=== PATIENT | female | born 1995 | race African-American/Black ===

== ENCOUNTER 2017-04-09 06:30 | Inpatient (IN) | payer OTHER ==
[~2017-04-09 06:30] MED LIST: ELECTROLYTE-148 SOLN 500 ML IV ONE
[2017-04-09 07:52] VITALS: BMI 38.3
[2017-04-09] MEDS ORDERED: CITRIC ACID/SODIUM CITRATE 30 ML UNIT-DOSE CUP PO ONE (08:15)
[2017-04-09] MEDS: ELECTROLYTE-148 SOLN 500 ML IV SCH ×2 (08:22→09:08)
[2017-04-09] MEDS ORDERED: TUBERCULIN PPD 5 TU/0.1ML SYRINGE (IN PATIENT USE ONLY) ID ONE (09:00)
[2017-04-09] MEDS ORDERED: IBUPROFEN 800 MG/8 ML IJ IVPB PRN ×2 (11:10→11:36)
[2017-04-09] MEDS ORDERED: METHYLERGONOVINE MALEATE 0.2 MG/1 ML AMP IM PRN (11:10)
[2017-04-09] MEDS ORDERED: oxyCODONE HCL 5 MG TABLET PO PRN ×2 (11:10)
--- NOTE | 2017-04-09 11:14 | HP ---
Past Medical History - Admission History Source: Patient, Medical Record - Past Medical History ...: 3 ...Para: 1 ...Term: 1 ...: 0 ...Spon : 1 ...Induced : 0 ...Multiple Gestation: 0 ...EDC by Theoo: 04/14/17 - Smoking History Smoking history: Never smoked Have you smoked in the past 12 months: No - Alcohol/Substance Use Hx Alcohol Use: No Home Medications - Allergies Allergies/Adverse Reactions: Allergies Allergy/AdvReac Type Severity Reaction Status Date / Time No Known Drug Allergies Allergy Verified 04/05/13 01:15 - Home Medications Home Medications: Ambulatory Orders Acetaminophen [Tylenol .Regular Strength -] 325 mg PO Q4H PRN #2 tablet Ketorolac Tromethamine [Toradol] 10 mg PO Q6H PRN #1 tablet 04/08/13 Vitamins (Sjr) - 1 tab PO DAILY #1 04/08/13 Sennosides/Docusate Sodium [Pericolace -] 2 each PO HS PRN #0 tablet 04/08/13 Simethicone [Mylicon -] 80 mg PO Q4H PRN #1 tab.chew 04/08/13 Physical Exam - Maternity Vital Signs: Vital Signs Temperature 98.5 F 04/09/17 07:44 Pulse Rate 98 H 04/09/17 07:52 Respiratory Rate 20 04/09/17 07:52 Blood Pressure 128/61 04/09/17 07:52 O2 Sat by Pulse Oximetry (%)
--- NOTE | 2017-04-09 11:19 | HP ---
Past Medical History - Admission Chief Complaint: Repeat c section History of Present Illness: 21 y/o with SIUP at 39 weeks gestation here for scheduled repeat delivery. Pt with h/o obesity and gHTN with last (has been on baby ASA throughout ). RH positive. Pt with no complaints today. Declines TOLAC. 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 No: MA Gastrointestinal: Yes: Other (umbilical hernia). No: Constipation, Irritable Bowel Disease Renal/: No: UTI Reproductive: No: Endometriosis, PID ...: 3 ...Para: 1 ...Term: 1 ...: 0 ...Spon : 1 ...Induced : 0 ...Multiple Gestation: 0 ...EDC by Son[facility]: 04/14/17 Heme/Onc: No: Sickle Cell Disease Infectious Disease: No: MRSA, STD's Psych: No: Anxiety, Bipolar, Depression Endocrine: No: Diabetes Mellitus, Hyperthyroidism, Hypothyroidism - Past Surgical History Hx Myomectomy: No Hx Transabdominal Cerclage: No Additional Surgical History: section - Smoking History Smoking history: Never smoked Have you smoked in the past 12 months: No - Alcohol/Substance Use Hx Alcohol Use: No - Social History Usual Living Arrangement: Yes: With Significant Other ADL: Independent History of Recent Travel: No Home Medications - Allergies Allergies/Adverse Reactions: Allergies Allergy/AdvReac Type Severity Reaction Status Date / Time No Known Drug Allergies Allergy Verified 04/05/13 01:15 - Home Medications Home Medications: Ambulatory Orders Acetaminophen [Tylenol .Regular Strength -] 325 mg PO Q4H PRN #2 tablet Ketorolac Tromethamine [Toradol] 10 mg PO Q6H PRN #1 tablet 04/08/13 Vitamins (Sjr) - 1 tab PO DAILY #1 04/08/13 Sennosides/Docusate Sodium [Pericolace -] 2 each PO HS PRN #0 tablet 04/08/13 Simethicone [Mylicon -] 80 mg PO Q4H PRN #1 tab.chew 04/08/13 Review of Systems - Review of Systems Constitutional: reports: No Symptoms Eyes: reports: No Symptoms HENT: reports: No Symptoms Neck: reports: No Symptoms Cardiovascular: reports: No Symptoms Respiratory: reports: No Symptoms Gastrointestinal: reports: No Symptoms Genitourinary: reports: No Symptoms Breasts: reports: No Symptoms Reported Musculoskeletal: reports: No Symptoms Integumentary: reports: No Symptoms Neurological: reports: No Symptoms Endocrine: reports: No Symptoms Hematology/Lymphatic: reports: No Symptoms Psychiatric: reports: No Symptoms Physical Exam - Maternity Vital Signs: Vital Signs Temperature 98.5 F 04/09/17 07:44 Pulse Rate 98 H 04/09/17 07:52 Respiratory Rate 20 04/09/17 07:52 Blood Pressure 128/61 04/09/17 07:52 O2 Sat by Pulse Oximetry (%) Constitutional: Yes: Well Nourished, No Distress, Calm Eyes: Yes: Conjunctiva Clear, EOM Intact HENT: Yes: Atraumatic, Normocephalic Neck: Yes: Supple, Trachea Midline Cardiovascular: Yes: Regular Rate and Rhythm Lungs: Clear to auscultation Breast(s): Yes: WNL - Abdominal Exam/OB Number of Fetuses: Single Presentation: Vertex Contractions: No Category: I Accelerations: Uniform Decelerations: None - Vaginal Exam/OB Amniotic Membrane Status: Intact - Physical Exam Psychiatric: Yes: Alert, Oriented Hemorrhage Risk Assessment - Risk Factors Medium Risk Factors: Yes: Prior , uterine surgery,or multiple laparotomies Risk Score: 1 Risk Level: Medium Risk Problem List - Problems (1) S/P Code(s): Z98.891 - HISTORY OF UTERINE SCAR FROM PREVIOUS SURGERY (2) Status post repeat low transverse section Code(s): Z98.891 - HISTORY OF UTERINE SCAR FROM PREVIOUS SURGERY (3) Obesity (BMI 30-39.9) Code(s): E66.9 - OBESITY, UNSPECIFIED Assessment/Plan 21 y/o with SIUP at 30 weeks, repeat c section - AFVSS - FHTS cat 1 - for repeat c section - anesthesia/nursing aware - consents signed, R/B/A discussed, questions answered
[2017-04-09] MEDS ORDERED: morphine SULFATE/Preservative Free 0.5 MG/ML (1cc Syringe) EP ONE (11:35)
[2017-04-09] MEDS ORDERED: ONDANSETRON 4 MG/2 ML VIAL IVPB PRN (11:35)
--- NOTE | 2017-04-09 12:10 | OP ---
Operative Note - Note: Operative Date: 04/09/17 Pre-Operative Diagnosis: Prior delivery, SIUP at 39 weeks, declined TOLAC Operation: repeat delivery Findings: normal b/l tubes and ovaries Post-Operative Diagnosis: Same as Pre-op Surgeon: Lorraine Daily Community Product Specialist: Rc Montano Anesthesiologist/[employer] ARCHITECT: Bj Kim Anesthesia: Spinal Specimens Removed: placenta, cord blood specimens Estimated Blood Loss (mls): 600 Operative Report Dictated: Yes
[2017-04-09] MEDS: OXYTOCIN 20 UNITS in 0.9% NS 1,000 ML IV SCH ×2 (12:15→16:24)
[2017-04-09] MEDS: CEFAZOLIN 1 GM in DEXTROSE 5%-WATER - 50 ML IVPB SCH (17:17)
[2017-04-09 18:29] LABS: URINE MARIJUANA THC NEGATIVE ng/ml (CUTOFF=50)
--- NOTE | 2017-04-09 19:20 | OP ---
DATE OF OPERATION: 04/09/2017 PREOPERATIVE DIAGNOSIS: Prior delivery. Single intrauterine at 39 weeks. Declines trial of labor after . POSTOPERATIVE DIAGNOSIS: Prior delivery. Single intrauterine at 39 weeks. Declines trial of labor after . PROCEDURE: Repeat low transverse . SURGEON: Lorraine Daily M.D. PRINCIPAL PROGRAMMER: Mac Jurado ANESTHESIA: Spinal by Bj Kim M.D. ESTIMATED BLOOD LOSS: 600 mL. SPECIMENS REMOVED: Included placenta as well as cord blood samples. COMPLICATIONS: None. DISPOSITION: Stable to recovery. COUNTS: Sponge, needle, and instrument count was reported as correct. BRIEF HISTORY AND PROCEDURE: BRIEF HISTORY AND PROCEDURE: Patient is a 21-year-old G3, P1-0-1-1 female at approximately 39 weeks who 2 days, was admitted to [facility] on April 09, 2017, for a scheduled repeat low transverse section. Consents were signed upon admission. The patient and the surgeon were mutually identified, and the patient was taken back to the operating room where she was given spinal anesthesia and placed in a dorsal supine position in the usual fashion. A hard timeout was performed. She was then prepped and draped in the usual sterile fashion. A Garcia catheter was placed under sterile conditions. Next a Pfannenstiel skin incision was created in the skin with a scalpel and carried to the underlying layer of rectus fascia. The fascia was incised on either side of the midline with a Bovie, and the fascial incision was extended in the superior lateral direction with the Bovie. The fascia was tented up and dissected off the underlying layer of rectus muscle with the Bovie. The midline of the rectus muscle was divided sharply. The peritoneum was entered sharply, and carefully dissected to allow for adequate delivery. The bladder blade was then inserted. Next a transverse incision in the lower uterus segment was completed and extended in the superior lateral direction bluntly. The infant was delivered from the right occipital transverse position without difficulty. Bilateral shoulders delivered without difficulty. The remainder of the infant delivered with ease. The cord was clamped twice and cut in between. The infant was taken over to the warmer to be assessed by the neonatology. The placenta was then delivered with the fetus with cord intact. It was manually extracted from the uterus. The uterus was exteriorized from the abdomen, inspected and cleared of all amniotic membrane and debris with a dry lap sponge. The hysterotomy was reapproximated in a double layer closure, first with 1 Vicryl suture in a running, locked fashion. Second layer was 0 Biosyn suture in a running, locked fashion. Excellent hemostasis was achieved. The posterior cul-de-sac was suctioned. The uterus was placed back into the abdomen. Bilateral gutters were inspected and cleared of all debris. Bilateral tubes and ovaries were noted to be normal. Again, hysterotomy was inspected and noted to be hemostatic. The peritoneal layer was then reapproximated using 2-0 chromic in a running fashion. The musculature was reapproximated using 1 interrupted suture of 2-0 chromic suture. Next, the rectus fascia was reapproximated using 1 Vicryl suture in a running locked fashion. The subcutaneous tissue was irrigated and any bleeding was cauterized with the Bovie device, and the subcutaneous tissue was reapproximated using 1 Vicryl suture in a running fashion, and a subcuticular stitch was placed in the skin using 3-0 Vicryl suture. All Steri-Strips were then applied. The patient tolerated the procedure well, to recovery in stable condition after the procedure in the PACU. Sponge and instrument count were reported to be correct. LORRAINE DAILY DO /[id number]
[2017-04-09] MEDS: FERROUS SO4 325 MG TABLET (FP) PO SCH (22:13)
[2017-04-10] MEDS ORDERED: ceFAZolin SODIUM 1 GM VIAL ONE ×2 (02:03→09:02)
[2017-04-10] MEDS ORDERED: DEXTROSE 5%-WATER - 50 ML IVPB ONE ×2 (02:03→09:02)
[2017-04-10] MEDS: CEFAZOLIN 1 GM in DEXTROSE 5%-WATER - 50 ML IVPB SCH ×2 (02:26→09:36)
[2017-04-10] MEDS: OXYTOCIN 20 UNITS in 0.9% NS 1,000 ML IV SCH (04:00)
[2017-04-10] MEDS: SIMETHICONE 80 MG TAB.CHEW (FP) PO PRN ×2 (05:45→20:02)
[2017-04-10] MEDS: ACETAMINOPHEN 325 MG TABLET (FP) PO PRN ×3 (05:45→20:03)
[2017-04-10 08:07] LABS: BASOPHIL 0.7 % (0-2.0); EOSINOPHIL 1.5 % (0-4.5); MCH 29.3 pg (25.7-33.7); MCHC 33.1 g/dl (32.0-36.0); MEAN CELL VOLUME 88.7 fl (80-96); MEAN PLT VOLUME 8.7 fl (7.5-11.1); NEUTROPHILS 71.5 % (42.8-82.8); PLATELET COUNT 206 K/MM3 (134-434); RDW 13.6 % (11.6-15.6); WHITE BLOOD COUNT 9.2 K/mm3 (4.0-10.0)
--- NOTE | 2017-04-10 08:41 | PN ---
Progress Note (short form) - Note Progress Note: Post op day#1.S/P C Section under spinal anesthesia with duramorph uneventful.Patient stable has little pain for which she is on medication.No any anesthesia related problem.Patient DC from the anesthesia care.
[2017-04-10] MEDS: ENOXAPARIN NA (PORCINE) 40 MG/0.4 ML DISP.SYRIN SQ SCH (09:36)
[2017-04-10] MEDS: FERROUS SO4 325 MG TABLET (FP) PO SCH ×2 (09:37→21:29)
[2017-04-10] MEDS: PRENATAL VITAMINS W/ FOLIC ACID TABLET (FP) PO SCH (09:37)
--- NOTE | 2017-04-10 09:51 | PN ---
Post Progress Note - Subjective Subjective: 21 yo Para 2 status post repeat , seen and evaluated. Doing well. Post Day: 1 Type of Delivery: Repeat C/S Vital Signs: Vital Signs Temperature 98.6 F 04/10/17 05:38 Pulse Rate 80 04/10/17 05:38 Respiratory Rate 20 04/10/17 06:00 Blood Pressure 145/94 04/10/17 05:38 O2 Sat by Pulse Oximetry (%) 99 04/09/17 13:30 Breast Exam: Yes: Soft Uterus: Yes: Fundus Firm Incision: Yes: Dressing dry and intact Abdomen/GI: Yes: Abdomen soft, Tolerating PO Lochia: Yes: Rubra Lochia, amount: Small Extremities: Yes: Calves non-tender Perineum: Yes: Intact Activity: Ambulating - Labs Labs: CBC WBC 9.2 K/mm3 (4.0-10.0) D 04/10/17 07:35 RBC 4.15 M/mm3 (3.60-5.2) 04/10/17 07:35 Hgb 12.2 GM/dL (10.7-15.3) 04/10/17 07:35 Hct 36.8 % (32.4-45.2) 04/10/17 07:35 MCV 88.7 fl (80-96) 04/10/17 07:35 MCH 29.3 pg (25.7-33.7) 04/10/17 07:35 MCHC 33.1 g/dl (32.0-36.0) 04/10/17 07:35 RDW 13.6 % (11.6-15.6) 04/10/17 07:35 Plt Count 206 K/MM3 (134-434) 04/10/17 07:35 MPV 8.7 fl (7.5-11.1) 04/10/17 07:35 Neutrophils % 71.5 % (42.8-82.8) D 04/10/17 07:35 Lymphocytes % 19.1 % (8-40) D 04/10/17 07:35 Monocytes % 7.2 % (3.8-10.2) 04/10/17 07:35 Eosinophils % 1.5 % (0-4.5) 04/10/17 07:35 Basophils % 0.7 % (0-2.0) 04/10/17 07:35 Assessment/Plan Status post repeat Stable Ambulation Analgesia as needed Continue routine post op care
[2017-04-10] MEDS ORDERED: BISACODYL 10 MG SUPP.RECT RC PRN (11:10)
[2017-04-10] MEDS: IBUPROFEN 600 MG TABLET (FP) PO PRN (20:02)
[2017-04-11] MEDS: FERROUS SO4 325 MG TABLET (FP) PO SCH ×2 (09:49→21:49)
[2017-04-11] MEDS: ENOXAPARIN NA (PORCINE) 40 MG/0.4 ML DISP.SYRIN SQ SCH (09:49)
[2017-04-11] MEDS: PRENATAL VITAMINS W/ FOLIC ACID TABLET (FP) PO SCH (09:49)
[2017-04-11] MEDS: IBUPROFEN 600 MG TABLET (FP) PO PRN (10:00)
[2017-04-11] MEDS: SIMETHICONE 80 MG TAB.CHEW (FP) PO PRN ×2 (10:01→21:49)
[2017-04-11] MEDS: ACETAMINOPHEN 325 MG TABLET (FP) PO PRN ×2 (10:01→21:50)
[2017-04-12 09:34] LABS: BASOPHIL 0.7 % (0-2.0); EOSINOPHIL 3.3 % (0-4.5); MCH 29.4 pg (25.7-33.7); MCHC 33.3 g/dl (32.0-36.0); MEAN CELL VOLUME 88.3 fl (80-96); MEAN PLT VOLUME 8.8 fl (7.5-11.1); NEUTROPHILS 58.9 % (42.8-82.8); PLATELET COUNT 253 K/MM3 (134-434); RDW 13.4 % (11.6-15.6); WHITE BLOOD COUNT 7.4 K/mm3 (4.0-10.0)
[2017-04-12] MEDS: PRENATAL VITAMINS W/ FOLIC ACID TABLET (FP) PO SCH (10:40)
[2017-04-12] MEDS: FERROUS SO4 325 MG TABLET (FP) PO SCH ×2 (10:40→21:14)
[2017-04-12] MEDS: ENOXAPARIN NA (PORCINE) 40 MG/0.4 ML DISP.SYRIN SQ SCH (10:41)
[2017-04-12] MEDS: IBUPROFEN 600 MG TABLET (FP) PO PRN (10:49)
[2017-04-12] MEDS: SIMETHICONE 80 MG TAB.CHEW (FP) PO PRN (10:50)
[2017-04-12] MEDS: ACETAMINOPHEN 325 MG TABLET (FP) PO PRN (10:50)
--- NOTE | 2017-04-12 12:28 | PN ---
Progress Note (SOAP) - Subjective Chief Complaint: Pt doing well - Current Medications Current Medications: Active Medications Acetaminophen (Tylenol -) 650 mg PO Q4H PRN PRN Reason: FEVER OR PAIN Last Admin: 04/12/17 10:50 Dose: 650 mg Bisacodyl (Dulcolax Suppository -) 10 mg RC PRN PRN PRN Reason: CONSTIPATION Diphenhydramine HCl (Benadryl Injection -) 25 mg IVPUSH Q4H PRN PRN Reason: Pruritis Last Admin: 04/10/17 05:45 Dose: 25 mg Enoxaparin Sodium (Lovenox -) 40 mg SQ DAILY [facility] Last Admin: 04/12/17 10:41 Dose: 40 mg Ferrous Sulfate (Feosol -) 325 mg PO BID [facility] Last Admin: 04/12/17 10:40 Dose: 325 mg Oxytocin/Sodium Chloride (Normal Saline+20 Units Oxytocin -) 1,000 mls @ 125 mls/hr IV ASDIR FRAN Last Admin: 04/10/17 04:00 Dose: 125 mls/hr Ibuprofen (Motrin -) 600 mg PO Q4H PRN PRN Reason: PAIN Last Admin: 04/12/17 10:49 Dose: 600 mg Ibuprofen (Caldolor Injection -) 600 mg IVPB Q8H PRN PRN Reason: FEVER Methylergonovine Maleate (Methergine Injection -) 0.2 mg IM Q4H PRN PRN Reason: Excessive Bleeding (L&D) Multivit/Folic Acid/Iron ( Vitamins (Sjr) -) 1 tab PO DAILY FRAN Last Admin: 04/12/17 10:40 Dose: 1 tab Simethicone (Mylicon -) 80 mg PO Q4H PRN PRN Reason: GAS Last Admin: 04/12/17 10:50 Dose: 80 mg - Objective Vital Signs: Vital Signs Temperature 98.9 F 04/12/17 08:00 Pulse Rate 82 04/12/17 08:00 Respiratory Rate 20 04/12/17 08:00 Blood Pressure 130/80 04/12/17 08:00 O2 Sat by Pulse Oximetry (%) 99 04/09/17 13:30 Constitutional: Yes: Well Nourished, No Distress Cardiovascular: Yes: WNL, Regular Rate and Rhythm Respiratory: Yes: WNL, Regular, CTA Bilaterally Gastrointestinal: Yes: WNL, Normal Bowel Sounds, Soft Musculoskeletal: Yes: WNL Extremities: Yes: WNL Wound/Incision: Yes: Clean/Dry, Well Approximated Labs Lab Results: CBC, BMP 04/12/17 09:15 Problem List - Problems (1) Status post repeat low transverse section Code(s): Z98.891 - HISTORY OF UTERINE SCAR FROM PREVIOUS SURGERY Assessment/Plan POD 3 Plan DC home
--- NOTE | 2017-04-13 09:06 | DS ---
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 Signs: Vital Signs Temperature 98.4 F 04/12/17 22:00 Pulse Rate 81 04/12/17 22:00 Respiratory Rate 20 04/12/17 22:00 Blood Pressure 136/94 04/12/17 22:00 O2 Sat by Pulse Oximetry (%) 99 04/09/17 13:30 Constitutional: Yes: Well Nourished, No Distress, Calm Eyes: Yes: Conjunctiva Clear, EOM Intact HENT: Yes: Atraumatic, Normocephalic Neck: Yes: Supple, Trachea Midline Cardiovascular: Yes: Regular Rate and Rhythm Respiratory: Yes: Regular, CTA Bilaterally Gastrointestinal: Yes: Normal Bowel Sounds, Soft ....Post : Yes: Uterus firm, Uterus non-tender Wound/Incision: Yes: Clean/Dry, Well Approximated Neurological: Yes: Alert, Oriented Psychiatric: Yes: Alert, Oriented Labs: CBC, BMP 04/12/17 09:15 Delivery - Delivery Type of Anesthesia: Spinal Episiotomy/Laceration: None EBL (cc): 600 Delivery, Single - Stages of Labor Date of Delivery: 04/09/17 Time of Delivery: 11:31 Time Placenta Delivered: 11:32 - Condition of Infant 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 Pt underwent uncomplicated procedure and post course. On post op day 4 was discharged home in stable condition. Condition: Good - Instructions Diet, Activity, Other Instructions: Physical activity Resume your normal everyday activity as tolerated no heavy lifting or exercise until seen by your surgeon. You may walk unlimited jaycee of and climb stairs. You may resume driving the car when you feel safe and comfortable behind the wheel. No sexual activity as instructed. Wound care If you have a bandage, leave it on, and keep dry for 48-72 hours. After that time discard the outer bandage. If they are tapes on the skin under the out of bandage leave them in place. They will peel off in the next 7 to 10 days. Do Not Peel them off. You may shower the day after surgery. If there are tapes present on the skin, you may shower over them. Diet There are no dietary restrictions. Eat healthy, high-fiber foods. Drink 6 to 8 glasses of liquid each day. This will assist in keeping your bowels are regular. Pain management You may take Tylenol or acetaminophen or Ibuprofen (for example, Motrin, Advil etc.) from my pain prescription medication is ordered should be taken as prescribed for moderate to severe pain. Call MD for any of the following: Severe pain not relieved by medication Fever of 101 or higher Excessive bleeding or drainage on dressing Inability to urinate Physical activity Resume your normal everyday activity as tolerated no heavy lifting or exercise until seen by your surgeon. You may walk unlimited jaycee of and climb stairs. You may resume driving the car when you feel safe and comfortable behind the wheel. No sexual activity as instructed. Wound care If you have a bandage, leave it on, and keep dry for 48-72 hours. After that time discard the outer bandage. If they are tapes on the skin under the out of bandage leave them in place. They will peel off in the next 7 to 10 days. Do Not Peel them off. You may shower the day after surgery. If there are tapes present on the skin, you may shower over them. Diet There are no dietary restrictions. Eat healthy, high-fiber foods. Drink 6 to 8 glasses of liquid each day. This will assist in keeping your bowels are regular. Pain management You may take Tylenol or acetaminophen or Ibuprofen (for example, Motrin, Advil etc.) from my pain prescription medication is ordered should be taken as prescribed for moderate to severe pain. Call MD for any of the following: Severe pain not relieved by medication Fever of 101 or higher Excessive bleeding or drainage on dressing Inability to urinate Disposition: HOME - Home Medications Comprehensive Discharge Medication List: Ambulatory Orders Acetaminophen [Tylenol .Regular Strength -] 325 mg PO Q4H PRN #2 tablet Ketorolac Tromethamine [Toradol] 10 mg PO Q6H PRN #1 tablet 04/08/13 Vitamins (Sjr) - 1 tab PO DAILY #1 04/08/13 Sennosides/Docusate Sodium [Pericolace -] 2 each PO HS PRN #0 tablet 04/08/13 Simethicone [Mylicon -] 80 mg PO Q4H PRN #1 tab.chew 04/08/13 Ibuprofen [Motrin -] 600 mg PO QID PRN #28 tablet 04/12/17
[2017-04-13 10:15] VITALS: BP 134/81; PULSE 67; TEMP 97.8
[2017-04-13] MEDS: FERROUS SO4 325 MG TABLET (FP) PO SCH (10:48)
[2017-04-13] MEDS: ENOXAPARIN NA (PORCINE) 40 MG/0.4 ML DISP.SYRIN SQ SCH (10:48)
[2017-04-13] MEDS: PRENATAL VITAMINS W/ FOLIC ACID TABLET (FP) PO SCH (10:48)
[2017-04-13] MEDS: OXYTOCIN 20 UNITS in 0.9% NS 1,000 ML IV SCH (13:03)
--- NOTE | 2017-04-18 16:48 | PATH ---
Surgical Pathology Report Patient Name: NIK KEENE Med. Rec. 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 Specimen(s) Received PLACENTA Clinical History 04/13-failure to dilate Induced x1, gestational hypertension Final Diagnosis PLACENTA, SECTION: FOCALLY DISRUPTED THIRD TRIMESTER PLACENTA (418 g). TRIVASCULAR UMBILICAL CORD AND UNREMARKABLE PLACENTAL MEMBRANES. Electronically Signed Kiah Delgadillo M.D. Gross Description The specimen is received fresh labeled placenta and is a 418 gram, 15.5 x 15.0 x 2.8 cm. placenta with attached membranes and umbilical cord. The attached membranes are tovar, translucent with focal opacities and insert marginally. The umbilical cord measures 28 cm. in length and averages 1.8 cm. in diameter. The cord inserts eccentrically, 5 cm. to the nearest margin. No true knots or strictures are identified. Cut surface of the umbilical cord reveals 3 vessels. The surface is huizar-blue with minimal fibrin deposition and appropriate caliber vessels. The maternal surface is red-brown with focal defects. Sectioning reveals red-brown, spongy parenchyma. No lesions are identified. Sr. Payroll Processor sections are submitted in three cassettes as follows: 1- membrane rolls and umbilical cord; 2-3- full thickness sections of placenta. 04/11/2017 [facility]
== END 2017-04-13 13:00 | disposition home or self-care (01) | DRG 540 ==
LOC: JLDR 06:30 → J3W 13:28
PROVIDERS: ADMIT Obstetrics & Gynecology; ATTEND Obstetrics & Gynecology
PROC: 10D00Z1 Extraction of Products of Conception, Low, Open Approach (ICD-10-PCS; principal; 2017-04-09)
DX: O34.211 Maternal care for low transverse scar from previous cesarean delivery (principal); O10.02 Pre-existing essential hypertension complicating childbirth; Z3A.39 39 weeks gestation of pregnancy; Z37.0 Single live birth
CPT/HCPCS: 36415; 80307; 85025; 88307-TC

== ENCOUNTER 2018-11-09 19:09 | Emergency (ER) | payer OTHER ==
[2018-11-09 19:15] VITALS: BP 155/87; PULSE 93; TEMP 98; BMI 36.8
--- NOTE | 2018-11-09 20:09 | PDOC ---
History of Present Illness - General Chief Complaint: Hemorrhoids Stated Complaint: HEMORRHOIDS Time Seen by Provider: 11/09/18 19:44 History Source: Patient Exam Limitations: No Limitations Past History - Past Medical History Allergies/Adverse Reactions: Allergies Allergy/AdvReac Type Severity Reaction Status Date / Time No Known Drug Allergies Allergy Verified 11/09/18 19:14 Home Medications: Ambulatory Orders Hydrocortisone Acetate [Anusol Hc Suppository -] 25 mg RC DAILY #14 supp.rect Lidocaine 2% Uro-Jet [Xylocaine 2% Uro-Jet] 10 ml GT DAILY PRN #4 cartridge 05/20 Anemia: No Asthma: No Cancer: No Cardiac Disorders: No CVA: No COPD: No CHF: No Dementia: No Diabetes: No GI Disorders: No Disorders: No HTN: Yes (GESTATIONAL) Hypercholesterolemia: No Liver Disease: No Seizures: No Thyroid Disease: No - Immunization History Immunization Up to Date: No - Suicide/Smoking/Psychosocial Hx Smoking History: Never smoked Have you smoked in the past 12 months: No Information on smoking cessation initiated: No Hx Alcohol Use: No Drug/Substance Use Hx: No Hx Substance Use Treatment: No *Physical Exam - Vital Signs Last Vital Signs Temp Pulse Resp BP Pulse Ox 98.0 F 93 H 16 155/87 100 11/09/18 19:13 11/09/18 19:13 11/09/18 19:13 11/09/18 19:13 11/09/18 19:13 - Physical Exam General Appearance: No: Apparent Distress Gastrointestinal/Abdominal: positive: Normal Bowel Sounds, Soft. negative: Tender, Distended, Guarding, Rebound Rectal Exam: positive: hemorrhoids, other (+thrombosed hemorrhoid, no active bleeding) Integumentary: positive: Normal Color Neurologic: positive: Alert, Normal Mood/Affect Medical Decision Making - Medical Decision Making 23 y/o F with no sig pmh presents with hemorrhoids x 1 year, worsening the past 4-5 days. Never sought tx for hemorrhoids prior as they never bothered her prior. The past few days, patient has tried Preparation-H, Colace, sitz bath without improvement of pain. Denies constipation/hard stools, fever, abd pain, rectal bleeding. Thrombosed external hemorrhoid Wanted to remove the clot, but patient refused to allow removal of clot at this time Wanted to have her by her side, but states he is taking too long to get here Explained to patient it would need to be removed to alleviate the pain, but patient states she is not ready right now Will refer to surgery 11/09/18 20:06 *DC/Admit/Observation/Transfer Diagnosis at time of Disposition: Thrombosed hemorrhoids - Discharge Dispostion Disposition: HOME Condition at time of disposition: Stable Decision to Admit order: No - Prescriptions Prescriptions: Hydrocortisone Acetate [Anusol Hc Suppository -] 25 mg RC DAILY #14 supp.rect Lidocaine 2% Uro-Jet [Xylocaine 2% Uro-Jet] 10 ml GT DAILY PRN #4 cartridge PRN Reason: Pain - Referrals Referrals: Heraclio Ruano MD [Staff Physician] - 2 Days - Patient Instructions Printed Discharge Instructions: DI for Hemorrhoids Additional Instructions: Thank you for choosing [facility]. It was a pleasure taking care of you. You were seen here for hemorrhoid with clot, which was not yet removed Please realize this clot needs to be removed for you to feel better Use the Anusol HC as directed Apply lidocaine ointment as needed for pain Continue Sitz bath 2-3 times a day You were referred to surgery clinic Return to the Emergency Department if your symptoms worsen or persist, you have fever, heavy bleeding, pustular drainage or other concerning symptoms. - Post Discharge Activity
[2018-11-09] MEDS ORDERED: LIDOCAINE HCL 5% TOP OINTMENT 50 GM TUBE TP ONE (20:16)
[2018-11-09] MEDS ORDERED: LIDOCAINE HCL 2% JELLY 10 ML CARTRIDGE ONE (20:18)
[2018-11-09] MEDS ORDERED: LIDOCAINE HCL 2% JELLY 10 ML CARTRIDGE PR ONE (20:21)
== END 2018-11-09 20:58 | disposition home or self-care (01) ==
LOC: JERFT 19:09
DX: K64.5 Perianal venous thrombosis (principal)
CPT/HCPCS: 99281-25

== ENCOUNTER 2019-05-18 23:13 | Emergency (ER) | payer OTHER ==
[2019-05-18 23:35] VITALS: BP 139/75; PULSE 101; TEMP 99.8; BMI 36.3
[2019-05-19] MEDS ORDERED: METOCLOPRAMIDE HCL INJECTION 10 MG/2 ML VIAL IVPUSH ONE (00:08)
[2019-05-19] MEDS ORDERED: SODIUM CHLORIDE 1,000 ML IV STA (00:08)
--- NOTE | 2019-05-19 00:16 | PDOC ---
History of Present Illness - General Chief Complaint: Headache Stated Complaint: HEADACHES/FEVER Time Seen by Provider: 05/19/19 00:06 History Source: Patient Exam Limitations: No Limitations - History of Present Illness Initial Comments: 05/19/19 00:11 HISTORY OF PRESENT ILLNESS: 23-year-old woman denies medical history presents to the emergency department for evaluation of fevers, sore throat and headache for 2 days. Patient reports her pain 8/10 describes as a throbbing/pounding sensation throughout her entire head worse on the left side. Patient was seen and evaluated at [facility] yesterday was found to have a positive strep test and was treated with Bicillin. Patient reports continued fevers headache and sore throat since that time. Patient was given fluids and Tylenol which gave her relief of her headache at that time. Patient has been taken Tylenol as directed with minimal relief of symptoms since then. She denies any blurry vision, dizziness, ear pain, hearing difficulties, chest pain, shortness of breath, abdominal pain, nausea or vomiting. No recent travel or sick contacts. PAST MEDICAL HISTORY: Denies past medical history SURGICAL HISTORY: Denies ALLERGIES: No known drug allergies REVIEW OF SYSTEMS General/Constitutional: See HPI HEENT: See HPI Cardiovascular: Denies chest pain or shortness of breath. Respiratory: Denies cough, wheezing, or hemoptysis. Gastrointestinal: Denies nausea, vomiting, diarrhea or constipation. Denies rectal bleeding. Genitourinary: Denies dysuria, frequency, or change in urination. Musculoskeletal: Denies joint or muscle swelling or pain. Denies neck or back pain. Skin and breasts: Denies rash or easy bruising. Neurologic: See HPI Psychiatric: Denies depression or anxiety. Endocrine: Denies increased thirst. Denies abnormal weight change. Hematologic/Lymphatic: Denies anemia, easy bleeding, or history of blood clots. Allergic/Immunologic: Denies hives or skin allergy. Denies latex allergy. PHYSICAL EXAM General Appearance: Well-appearing, appropriately dressed. No apparent distress , no intoxication. HEENT: EOMI, PERRLA, normal ENT inspection, normal voice, TMs normal. Oropharynx with no conjunctival pallor. No photophobia, scleral icterus. 3+ tonsils with tonsillar erythema and exudate present. Neck: Supple. Trachea midline. No tenderness, rigidity, carotid bruit, stridor , or thyromegaly. No meningismus present. Anterior cervical lymphadenopathy present. Respiratory/Chest: Lungs CTAB. No shortness of breath, chest tenderness, respiratory distress, accessory muscle use. No crackles, rales, rhonchi, stridor , wheezing, dullness Cardiovascular: RRR. S1, S2. No JVD, murmur, bradycardia, tachycardia. Vascular Pulses: Dorsalis-Pedis (R): 2+, Dorsalis-Pedis (L): 2+ Gastrointestinal/Abdominal: Normal bowel sounds. Abdomen soft, non-distended. No tenderness or rebound tenderness. No organomegaly, pulsatile mass, guarding, hernia, hepatomegaly, splenomegaly. Lymphatic: No adenopathy, tenderness. Musculoskeletal/Extremities: Normal inspection. FROM of all extremities, normal capillary refill. Pelvis Stable. No CVA tenderness. No tenderness to extremities, pedal edema, swelling, erythema or deformity. Integumentary: Appropriate color, dry, warm. No cyanosis, erythema, jaundice or rash Neurologic: lacing string cutter II-XII intact. Fully oriented, alert. Appropriate mood/affect. Motor strength 5/5. No appreciable EOM palsy, facial droop or sensory deficit. Gait steady. Negative Kernig and Brudzinski signs. 05/19/19 00:17 05/19/19 01:48 Past History - Past Medical History Allergies/Adverse Reactions: Allergies Allergy/AdvReac Type Severity Reaction Status Date / Time No Known Drug Allergies Allergy Verified 05/18/19 23:35 Home Medications: Ambulatory Orders Hydrocortisone Acetate [Anusol Hc Suppository -] 25 mg RC DAILY #14 supp.rect Lidocaine 2% Uro-Jet [Xylocaine 2% Uro-Jet] 10 ml GT DAILY PRN #4 cartridge 05/20 Anemia: No Asthma: No Cancer: No Cardiac Disorders: No CVA: No COPD: No CHF: No Dementia: No Diabetes: No GI Disorders: No Disorders: No HTN: Yes (GESTATIONAL) Hypercholesterolemia: No Liver Disease: No Seizures: No Thyroid Disease: No - Immunization History Immunization Up to Date: No - Psycho Social/Smoking Cessation Hx Smoking History: Never smoked Have you smoked in the past 12 months: No Hx Alcohol Use: No Drug/Substance Use Hx: No Hx Substance Use Treatment: No *Physical Exam - Vital Signs Last Vital Signs Temp Pulse Resp BP Pulse Ox 99.8 F H 101 H 20 139/75 98 05/18/19 23:13 05/18/19 23:13 05/18/19 23:13 05/18/19 23:13 05/18/19 23:13 Medical Decision Making - Medical Decision Making 05/19/19 00:16 A/P: 23-year-old woman with 2 days of fevers, throat pain and headache Likely streptococcal pharyngitis given previous diagnosis and treatment. Reglan 10 mg IV now Benadryl 12.5 mg IV now Normal saline 1 L IV bolus Urinalysis Urine If urine is negative I will add Toradol 30 mg IV Reassess 05/19/19 01:49 Patient reports complete relief of pain after receiving migraine cocktail. Patient is requesting discharge at this time. As patient had a normal neurologic exam is currently pain-free we will discharge with outs any imaging studies performed. Patient's rapid strep testing was negative. Patient to be discharged home with neurologic follow-up. I will provide name for Dr. Dixon for continued evaluation of her headaches. Discharge - Discharge Information Problems reviewed: Yes Clinical Impression/Diagnosis: Headache Qualifiers: Headache type: unspecified Headache chronicity pattern: acute headache Intractability: not intractable Qualified Code(s): R51 - Headache Condition: Fair Disposition: HOME - Admission No - Follow up/Referral Referrals: Akira Kerr [Primary Care Provider] - El Dixon MD [Staff Physician] - - Patient Discharge Instructions Additional Instructions: Take Tylenol or Motrin as needed for headaches. Keep a diary of all food to eat and activities performed prior to headaches starting. Make an appointment with her primary doctor for reevaluation within the next week. Return to emergency department for worsening headache, blurry vision, dizziness , nausea, vomiting or any other concerns. Thank you very much for for choosing us to provide emergent health care needs. - Post Discharge Activity
[2019-05-19 00:38] LABS: EPI CELLS 13.5 /HPF (0-5/HPF); HYALINE CASTS 101 /lpf (0-8); URINE APPEARANCE CLOUDY; URINE BACTERIA 131.1 /hpf (NEGATIVE); URINE BILIRUBIN 1+ (NEGATIVE); URINE COLOR DK YELLOW; URINE GLUCOSE (UA) NEGATIVE (NEGATIVE); URINE KETONE 1+ (NEGATIVE); URINE LEUK ESTERASE TRACE (NEGATIVE); URINE NITRITE NEGATIVE (NEGATIVE); URINE PROTEIN 1+ (NEGATIVE); URINE WBC 10 /hpf (0-5)
[2019-05-19] MEDS ORDERED: DEXAMETHASONE LIQUID 0.5 MG/5 ML PO ONE (00:43)
[2019-05-19] MEDS ORDERED: KETOROLAC TROMETHAMINE 30 MG/1 ML VIAL IVPUSH ONE (00:43)
[2019-05-19] MEDS ORDERED: METOCLOPRAMIDE HCL INJECTION 10 MG/2 ML VIAL ONE (00:53)
[2019-05-19] MEDS ORDERED: DEXAMETHASONE SOD PHOSPHATE 10 MG/1 ML VIAL ONE (00:53)
[2019-05-19] MEDS ORDERED: KETOROLAC TROMETHAMINE 30 MG/1 ML VIAL ONE (00:54)
[2019-05-19 04:16] LABS: URINE RBC 7 /hpf (0-4)
== END 2019-05-19 01:45 | disposition home or self-care (01) ==
LOC: JER 23:13
DX: R51 Headache (principal)
CPT/HCPCS: 81003; 84703; 87070; 87880; 99283-25; J7030

== ENCOUNTER 2019-06-29 18:35 | Emergency (ER) | payer OTHER ==
[2019-06-29 18:54] VITALS: BP 134/71; PULSE 90; TEMP 97.8; BMI 37.0
--- NOTE | 2019-06-29 20:28 | PDOC ---
History of Present Illness - General Chief Complaint: Abscess Boil Stated Complaint: SPIDER BITE Time Seen by Provider: 06/29/19 18:55 History Source: Patient Exam Limitations: No Limitations - History of Present Illness Initial Comments: 06/29/19 20:28 HISTORY OF PRESENT ILLNESS: This a 23-year-old woman past medical history of eczema who presents to the emergency department for evaluation of 2 lesions present to her right forearm over the past 3 days. Patient reports she believes they were pimples and tried to express fluid from the lesions. Patient had similar lesions to her right thigh approximately 3 weeks ago and was able to express fluid from those lesions. 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 No recent travel or sick contacts. PAST MEDICAL HISTORY: Eczema SURGICAL HISTORY: Denies ALLERGIES: No known drug allergies REVIEW OF SYSTEMS General/Constitutional: Denies fever or chills. Denies weakness, weight change. HEENT: Denies change in vision. Denies ear pain or discharge. Denies sore throat. Cardiovascular: Denies chest pain or shortness of breath. Respiratory: Denies cough, wheezing, or hemoptysis. Gastrointestinal: Denies nausea, vomiting, diarrhea or constipation. Denies rectal bleeding. Genitourinary: Denies dysuria, frequency, or change in urination. Musculoskeletal: Denies joint or muscle swelling or pain. Denies neck or back pain. Skin and breasts: See HPI Neurologic: Denies headache, vertigo, loss of consciousness, or loss of sensation. Psychiatric: Denies depression or anxiety. Endocrine: Denies increased thirst. Denies abnormal weight change. Hematologic/Lymphatic: Denies anemia, easy bleeding, or history of blood clots. Allergic/Immunologic: Denies hives or skin allergy. Denies latex allergy. PHYSICAL EXAM General Appearance: Well-appearing, appropriately dressed. No apparent distress , no intoxication. Respiratory/Chest: Lungs CTAB. No shortness of breath, chest tenderness, respiratory distress, accessory muscle use. No crackles, rales, rhonchi, stridor , wheezing, dullness Cardiovascular: RRR. S1, S2. No JVD, murmur, bradycardia, tachycardia. Musculoskeletal/Extremities: Normal inspection. FROM of all extremities, normal capillary refill. Pelvis Stable. No CVA tenderness. No tenderness to extremities, pedal edema, swelling, erythema or deformity. Integumentary: Raised patchy pruritic plaque present to right upper arm. 2 subcentimeter circular areas of induration with 1 cm of surrounding communicating erythema present. No fluctuance present upon palpation. No discharge or drainage is present from lesions. Past History - Past Medical History Allergies/Adverse Reactions: Allergies Allergy/AdvReac Type Severity Reaction Status Date / Time No Known Drug Allergies Allergy Verified 06/29/19 18:54 Home Medications: Ambulatory Orders Hydrocortisone Acetate [Anusol Hc Suppository -] 25 mg RC DAILY #14 supp.rect Lidocaine 2% Uro-Jet [Xylocaine 2% Uro-Jet] 10 ml GT DAILY PRN #4 cartridge 05/20 Chlorhexidine Gluconate [Hibiclens For Decolonization -] 1 applic TP DAILY #1 bottle 06/29/19 Mometasone Furoate [Elocon] 45 gm TP BID #1 tube 06/29/19 Sulfamethoxazole/Trimethoprim [Bactrim Ds -] 1 tab PO BID #14 tablet 06/29/19 Anemia: No Asthma: No Cancer: No Cardiac Disorders: No CVA: No COPD: No CHF: No Dementia: No Diabetes: No GI Disorders: No Disorders: No HTN: Yes (GESTATIONAL) Hypercholesterolemia: No Liver Disease: No Seizures: No Thyroid Disease: No - Immunization History Immunization Up to Date: No - Psycho Social/Smoking Cessation Hx Smoking History: Never smoked Have you smoked in the past 12 months: No Hx Alcohol Use: No Drug/Substance Use Hx: No Hx Substance Use Treatment: No *Physical Exam - Vital Signs Last Vital Signs Temp Pulse Resp BP Pulse Ox 97.8 F 90 18 134/71 100 06/29/19 18:50 06/29/19 18:50 06/29/19 18:50 06/29/19 18:50 06/29/19 18:50 Medical Decision Making - Medical Decision Making 06/29/19 20:27 A/P: 23-year-old woman with eczema to right upper extremity and multiple nonfluctuant abscesses to right forearm with surrounding cellulitis 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 As there is no fluctuance I will defer I&D at this time and treat with outpatient antibiotics. Patient has been instructed to apply warm compresses to the areas to help progression of abscesses. Hibiclens wash for decolonization Elocon cream for eczema Dermatology referral Discharge home Discharge - Discharge Information Problems reviewed: Yes Clinical Impression/Diagnosis: Cellulitis and abscess of upper extremity Eczema Qualifiers: Eczema type: unspecified Qualified Code(s): L30.9 - Dermatitis, unspecified Condition: Stable Disposition: HOME - Admission No - Additional Discharge Information Prescriptions: Chlorhexidine Gluconate [Hibiclens For Decolonization -] 1 applic TP DAILY #1 bottle Mometasone Furoate [Elocon] 45 gm TP BID #1 tube Sulfamethoxazole/Trimethoprim [Bactrim Ds -] 1 tab PO BID #14 tablet - Follow up/Referral Referrals: Lucien Kerr MD [Primary Care Provider] - Pam Solorzano MD [Staff Physician] - - Patient Discharge Instructions Additional Instructions: Take Bactrim DS one tablet twice a day for the next 7 days Finish all antibiotics even if you feel better. Apply warm compresses to affected areas as needed. Use chlorhexidine to wash your skin. Use mometasone as directed for eczema. You been given a referral for canal structure operator for reevaluation. Return to emergency department for any worsening pain, drainage, hearing loss, or any other concerns. Thank you very much for choosing us to provide your emergent health care needs. - Post Discharge Activity
== END 2019-06-29 20:34 | disposition home or self-care (01) ==
LOC: JERFT 18:35
DX: L03.113 Cellulitis of right upper limb (principal); L02.413 Cutaneous abscess of right upper limb; L30.9 Dermatitis, unspecified; O13.5 Gestational [pregnancy-induced] hypertension without significant proteinuria, complicating the puerperium
CPT/HCPCS: 99281-25

== ENCOUNTER 2021-09-08 08:00 | Inpatient (IN) | payer OTHER ==
[2021-09-15] MEDS: ELECTROLYTE-148 SOLN 1,000 ML IV SCH (09:10)
[2021-09-15] MEDS ORDERED: LABETALOL HCL 200 MG TABLET (FP) PO ONE (09:30)
[2021-09-15] MEDS ORDERED: LABETALOL HCL 200 MG TABLET (FP) ONE (09:38)
[2021-09-15] MEDS ORDERED: CITRIC ACID/SODIUM CITRATE 30 ML UNIT-DOSE CUP PO ONE (09:48)
[2021-09-15] MEDS ORDERED: PROMETHAZINE HCL 25 MG/1 ML VIAL IVPB ONE (09:48)
[2021-09-15] MEDS ORDERED: METHYLERGONOVINE MALEATE 0.2 MG/1 ML AMP IM PRN (09:50)
[2021-09-15] MEDS ORDERED: ACETAMINOPHEN 325 MG TABLET (FP) PO PRN (09:50)
[2021-09-15] MEDS ORDERED: BENZOCAINE 20% 57 GM BOTTLE TP PRN (09:50)
[2021-09-15] MEDS ORDERED: ACETAMINOPHEN 1000 MG/100 ML BAG IVPB PRN (09:52)
[2021-09-15] MEDS ORDERED: ONDANSETRON 4 MG/2 ML VIAL IVPUSH PRN (09:55)
[2021-09-15] MEDS ORDERED: morphine SULFATE/PF 1 MG/2 ML (2cc Syringe - QUVA) ONE (10:21)
[2021-09-15] MEDS ORDERED: PHENYLEPHRINE HCL 10 MG/1 ML SINGLE DOSE VIAL ONE (10:51)
[2021-09-15] MEDS ORDERED: OXYTOCIN 10 UNITS/ML VIAL ONE ×4 (10:51→11:25)
[2021-09-15] MEDS ORDERED: ceFAZolin SODIUM 1 GM VIAL ONE ×2 (10:51)
[2021-09-15] MEDS ORDERED: MIDAZOLAM HCL 2 MG/2 ML SINGLE DOSE VIAL ONE (10:54)
[2021-09-15 11:21] LABS: CORD BASE EXCESS -2.8 mmol/L (0-2); CORD PCO2 38.8 mmHg (30-78); CORD pH 7.372 (7.14-7.44)
[2021-09-15] MEDS: OXYTOCIN 20 UNITS in 0.9% NS 20 UNIT/1,000 ML INFUS.BAG IV SCH (11:35)
[2021-09-15] MEDS ORDERED: ACETAMINOPHEN INJECTION 100 ML IVPB ONE (11:36)
[2021-09-15] MEDS ORDERED: OXYTOCIN 20 UNITS in 0.9% NS 20 UNIT/1,000 ML INFUS.BAG IV ONE (11:37)
[2021-09-15] MEDS: FERROUS SO4 325 MG TABLET (FP) PO SCH ×2 (11:55→22:00)
[2021-09-15] MEDS: PRENATAL VITAMINS W/ FOLIC ACID TABLET (FP) PO SCH (11:57)
[2021-09-15 12:24] VITALS: BMI 40.2
[2021-09-15] MEDS: LABETALOL HCL 200 MG TABLET (FP) PO SCH ×2 (14:36→22:15)
[2021-09-16] MEDS ORDERED: ACETAMINOPHEN 325 MG TABLET (FP) PO PRN (01:30)
[2021-09-16] MEDS: IBUPROFEN 600 MG TABLET (FP) PO PRN ×3 (01:55→19:46)
[2021-09-16] MEDS: LABETALOL HCL 200 MG TABLET (FP) PO SCH ×3 (05:53→21:54)
[2021-09-16] MEDS: SIMETHICONE 80 MG TAB.CHEW (FP) PO PRN ×3 (05:53→21:53)
[2021-09-16 08:26] LABS: BASO % 0.5 % (0-2.0); EOS % 1.8 % (0-4.5); HEMATOCRIT 28.6 % (32.4-45.2); HEMOGLOBIN 9.7 GM/dL (10.7-15.3); LYMPH % 26.6 % (8-40); MCH 27.6 pg (25.7-33.7); MCHC 33.9 g/dl (32.0-36.0); MEAN CELL VOLUME 81.5 fl (80-96); MONO % 6.7 % (3.8-10.2); NEUT % 64.4 % (42.8-82.8); PLATELET COUNT 244 10^3/uL (134-434); RBC 3.51 M/mm3 (3.60-5.2); RDW 14.5 % (11.6-15.6)
[2021-09-16] MEDS: FERROUS SO4 325 MG TABLET (FP) PO SCH ×2 (09:29→21:53)
[2021-09-16] MEDS: PRENATAL VITAMINS W/ FOLIC ACID TABLET (FP) PO SCH (09:29)
[2021-09-16] MEDS ORDERED: BISACODYL 10 MG SUPP.RECT RC PRN (09:51)
[2021-09-16] MEDS: ELECTROLYTE-148 SOLN 1,000 ML IV SCH (21:10)
[2021-09-16] MEDS: OXYTOCIN 20 UNITS in 0.9% NS 20 UNIT/1,000 ML INFUS.BAG IV SCH (21:11)
[2021-09-16] MEDS ORDERED: oxyCODONE HCL 5 MG TABLET PO PRN ×2 (21:51)
[2021-09-17] MEDS: LABETALOL HCL 200 MG TABLET (FP) PO SCH (05:53)
[2021-09-17] MEDS: IBUPROFEN 600 MG TABLET (FP) PO PRN (05:53)
[2021-09-17 08:35] VITALS: BP 127/84; PULSE 85; TEMP 98
[2021-09-17] MEDS: FERROUS SO4 325 MG TABLET (FP) PO SCH (09:00)
[2021-09-17] MEDS: PRENATAL VITAMINS W/ FOLIC ACID TABLET (FP) PO SCH (09:00)
== END 2021-09-17 11:45 | disposition home or self-care (01) | DRG 540 ==
LOC: JLDR 09-15 08:40 → J3W 09-15 14:05
PROVIDERS: ADMIT Obstetrics & Gynecology; ATTEND Obstetrics & Gynecology
PROC: 10D00Z1 Extraction of Products of Conception, Low, Open Approach (ICD-10-PCS; principal; 2021-09-15)
DX: O34.211 Maternal care for low transverse scar from previous cesarean delivery (principal); O16.4 Unspecified maternal hypertension, complicating childbirth; Z3A.38 38 weeks gestation of pregnancy; Z37.0 Single live birth
CPT/HCPCS: 36415; 36600; 80048; 82803; 85025; 85610; 85730; 86780; 86850; 86900; 86901; 88307-TC; C9803-CS; U0003; U0005